=== PATIENT | male | born 1945 | race Caucasian/White ===

== ENCOUNTER 2019-03-09 07:34 | Emergency (ER) | payer MEDICARE ==
[2019-03-09] MEDS ORDERED: Aspirin 81 MG Tab.Chew PO ONE (07:48)
[2019-03-09] MEDS ORDERED: Morphine 4 MG/ML Syringe IVPUSH ONE ×3 (07:48→08:22)
[2019-03-09] MEDS ORDERED: Nitroglycerin/D5W 25 MG/250 ML BOTTLE IV SCH (08:00)
[2019-03-09] MEDS ORDERED: Sodium Chloride 0.9% 10 ML Syringe FLUSH PRN (08:00)
[2019-03-09] MEDS ORDERED: Clopidogrel 75 MG Tab PO ONE (08:01)
[2019-03-09] MEDS ORDERED: Heparin Sodium 5,000 Units/ML Vial IVPUSH ONE (08:01)
[2019-03-09] MEDS ORDERED: LORazepam 2 MG/ML SDV IVPUSH ONE (08:06)
[2019-03-09] MEDS ORDERED: Heparin Sodium/D5W 25,000 UNITS/500 ML BAG IV SCH (08:15)
[2019-03-09] MEDS ORDERED: Morphine 4 MG/ML Syringe ONE (08:25)
--- NOTE | 2019-03-09 08:47 | EDM.PDOC ---
ED HPI GENERAL MEDICAL PROBLEM - General Chief Complaint: Chest Pain Stated Complaint: CHEST PAINS Time Seen by Provider: 03/09/19 07:54 Source of Information: Reports: Patient History Limitations: Reports: No Limitations - History of Present Illness INITIAL COMMENTS - FREE TEXT/NARRATIVE: 73-year-old white male comes in with chest pain. He's had 5 stents in the past that is 3 or 4 different episodes last time was 2011 at [facility]. For the past 2 or 3 days he's been having episodes of chest pain and this morning he got out of the shower and it was quite a bit worse. He took [address] on the way in. It decreased the pain a little bit now down to about 6 out of 10. He feels a little bit short of breath sometimes no nausea no sweats. He's anon smoker no significant family history of heart disease. His says his heart rate is always just a little bit on the low side. Left Chest Pain Score (Numeric/FACES): 8 - Related Data Allergies Allergy/AdvReac Type Severity Reaction Status Date / Time No Known Allergies Allergy Verified 03/09/19 07:49 Past Medical History Cardiovascular History: Reports: Stents - Infectious Disease History Infectious Disease History: Reports: Chicken Pox Social & Family History - Tobacco Use Smoking Status *Q: Unknown Ever Smoked ED ROS GENERAL - Review of Systems Review Of Systems: ROS reveals no pertinent complaints other than HPI. ED EXAM, GENERAL - Physical Exam Exam: See Below Exam Limited By: No Limitations General Appearance: Alert, WD/WN, Mild Distress Eye Exam: Bilateral Eye: Normal Inspection Throat/Mouth: Normal Inspection Neck: Normal Inspection Respiratory/Chest: Lungs Clear Cardiovascular: Normal Peripheral Pulses, Regular Rate, Rhythm, No Murmur GI/Abdominal: Non-Tender Extremities: Normal Inspection, No Pedal Edema Neurological: Alert, Oriented, Normal Cognition Psychiatric: Normal Affect Skin Exam: Warm, Dry Course - Vital Signs Last Recorded V/S: Last Vital Signs Temp 35.9 C 03/09/19 07:37 Pulse 59 L 03/09/19 07:37 Resp 16 03/09/19 07:37 BP 153/79 H 03/09/19 07:37 Pulse Ox 95 03/09/19 07:37 - Orders/Labs/Meds Orders: Active Orders 24 hr Category Date Time Status EKG Documentation Completion [RC] ASDIRECTED Care 03/09/19 08:00 Active Heparin Sodium/D5W [Heparin 25,000 Units in D5W 500 ML] Med 03/09/19 08:15 Active 25,000 units in 500 ml IV TITRATE Nitroglycerin/D5W [Nitroglycerin 25 MG/D5W 250 ML] Med 03/09/19 08:00 Active 25 mg in 250 ml IV TITRATE Sodium Chloride 0.9% [Saline Flush] Med 03/09/19 08:00 Active 10 ml FLUSH ASDIRECTED PRN Saline Lock Insert [OM.PC] Urgent Oth 03/09/19 08:00 Ordered EKG 12 Lead [EK] Urgent Ther 03/09/19 08:00 Ordered Medication Orders Nitroglycerin/Dextrose (Nitroglycerin 25 Mg/D5w 250 Ml) 25 mg in 250 mls @ 6 mls/hr IV TITRATE NICA; Protocol Last Admin: 03/09/19 08:01 Dose: 10 mcg/min, 6 mls/hr Heparin Sodium/Dextrose (Heparin 25,000 Units In D5w 500 Ml) 25,000 units in 500 mls @ 20 mls/hr IV TITRATE NICA; Protocol Last Admin: 03/09/19 08:22 Dose: 1,000 units/hr, 20 mls/hr Sodium Chloride (Saline Flush) 10 ml FLUSH ASDIRECTED PRN PRN Reason: Keep Vein Open Labs: Laboratory Tests 03/09/19 03/09/19 03/09/19 Range/Units 08:11 08:11 08:11 WBC 7.1 (4.5-11.0) K/uL RBC 4.75 (4.30-5.90) M/uL Hgb 15.4 H (12.0-15.0) g/dL Hct 44.3 (40.0-54.0) % MCV 93 (80-98) fL MCH 32 H (27-31) pg MCHC 35 (32-36) % Plt Count 211 (150-400) K/uL Neut % (Auto) 70 H (36-66) % Lymph % (Auto) 20 L (24-44) % [place] % (Auto) 9 H (2-6) % Eos % (Auto) 1 L (2-4) % Baso % (Auto) 0 (0-1) % APTT 24.9 L (27.0-36.0) sec Sodium 144 (140-148) mmol/L Potassium 3.9 (3.6-5.2) mmol/L Chloride 108 (100-108) mmol/L Carbon Dioxide 25 (21-32) mmol/L Anion Gap 10.7 (5.0-14.0) mmol/L BUN 21 H (7-18) mg/dL Creatinine 1.0 (0.8-1.3) mg/dL Est Cr Clr Drug Dosing 68.94 mL/min Estimated GFR (MDRD) > 60 (>60) Glucose 108 H (74-106) mg/dL Calcium 9.1 (8.5-10.1) mg/dL Total Bilirubin 0.7 (0.2-1.0) mg/dL AST 17 (15-37) U/L ALT 34 (12-78) U/L Alkaline Phosphatase 58 (46-116) U/L Troponin I < 0.017 (0.000-0.056) ng/mL Total Protein 6.8 (6.4-8.2) g/dL Albumin 3.9 (3.4-5.0) g/dL Globulin 2.9 (2.3-3.5) g/dL Albumin/Globulin Ratio 1.3 (1.2-2.2) Meds: Medications Generic Name Dose Route Start Last Admin Trade Name Freq PRN Reason Stop Dose Admin Nitroglycerin/Dextrose 25 mg in 250 mls @ 6 mls/hr 03/09/19 08:00 03/09/19 08 :01 Nitroglycerin 25 Mg/D5w 250 Ml IV 10 mcg/min TITRATE NICA 6 mls/hr Administration Protocol 10 MCG/MIN Heparin Sodium/Dextrose 25,000 units in 500 mls @ 20 mls/hr 03/09/19 08:15 08:22 Heparin 25,000 Units In D5w 500 Ml IV 1,000 units/hr TITRATE NICA 20 mls/hr Administration Protocol 1,000 UNITS/HR Sodium Chloride 10 ml 03/09/19 08:00 Saline Flush FLUSH ASDIRECTED PRN Keep Vein Open Discontinued Medications Generic Name Dose Route Start Last Admin Trade Name Freq PRN Reason Stop Dose Admin Aspirin 325 mg 03/09/19 07:48 03/09/19 07:53 Aspirin PO 03/09/19 07:49 325 mg ONETIME ONE Administration Clopidogrel Bisulfate 600 mg 03/09/19 08:01 03/09/19 08:11 Plavix PO 03/09/19 08:02 600 mg ONETIME ONE Administration Heparin Sodium (Porcine) 4,000 units 03/09/19 08:01 03/09/19 08:10 Heparin Sodium IVPUSH 03/09/19 08:02 4,000 units ONETIME ONE Administration Lorazepam 1 mg 03/09/19 08:06 03/09/19 08:13 Ativan IVPUSH 03/09/19 08:07 1 mg ONETIME ONE Administration Morphine Sulfate 4 mg 03/09/19 07:48 03/09/19 08:01 Morphine IVPUSH 03/09/19 07:49 4 mg ONETIME ONE Administration Morphine Sulfate 4 mg 03/09/19 08:06 03/09/19 08:14 Morphine IVPUSH 03/09/19 08:07 4 mg ONETIME ONE Administration Morphine Sulfate 4 mg 03/09/19 08:22 03/09/19 08:26 Morphine IVPUSH 03/09/19 08:23 4 mg ONETIME ONE Administration Morphine Sulfate Confirm 03/09/19 08:25 Morphine Administered 03/09/19 08:26 Dose 4 mg .ROUTE .[facility] - Re-Assessments/Exams Free Text/Narrative Re-Assessment/Exam: 03/09/19 08:40 CP down to 3/10 after 4mg x 3 Morphine. Increasing ntg to 20. Bp 160's. 03/09/19 0845 An EKG showed a normal sinus rhythm partial right bundle branch block. No old EKGs. We started off with aspirin and a little bit difficulty starting an IV once we got it he was given IV morphine and started a nitroglycerin drip. I spoke with Dr. Vidal at [facility] in [place] and he has accepted the patient will go ahead and proceed with heparin bolus and drip and loaded with Plavix 600 mg. At present time the patient's pain is as noted above. He's being loaded up for transfer now Departure - Departure Time of Disposition: 08:47 Disposition: DC/Tfer to [facility] Reason for Transfer *Q: Primary PCI Indicated Condition: Serious Clinical Impression: Acute coronary syndrome Referrals: PCP,None [Primary Care Provider] - - My Orders Last 24 Hours: My Active Orders 03/09/19 08:00 EKG Documentation Completion [RC] ASDIRECTED Nitroglycerin/D5W [Nitroglycerin 25 MG/D5W 250 ML] 25 mg in 250 ml IV TITRATE Sodium Chloride 0.9% [Saline Flush] 10 ml FLUSH ASDIRECTED PRN Saline Lock Insert [OM.PC] Urgent EKG 12 Lead [EK] Urgent 03/09/19 08:15 Heparin Sodium/D5W [Heparin 25,000 Units in D5W 500 ML] 25,000 units in 500 ml IV TITRATE - Assessment/Plan Last 24 Hours: My Active Orders 03/09/19 08:00 EKG Documentation Completion [RC] ASDIRECTED Nitroglycerin/D5W [Nitroglycerin 25 MG/D5W 250 ML] 25 mg in 250 ml IV TITRATE Sodium Chloride 0.9% [Saline Flush] 10 ml FLUSH ASDIRECTED PRN Saline Lock Insert [OM.PC] Urgent EKG 12 Lead [EK] Urgent 03/09/19 08:15 Heparin Sodium/D5W [Heparin 25,000 Units in D5W 500 ML] 25,000 units in 500 ml IV TITRATE
== END 2019-03-09 09:00 ==
LOC: JP.ED 07:34
DX: I24.9 Acute ischemic heart disease, unspecified (principal); Z79.82 Long term (current) use of aspirin; Z79.02 Long term (current) use of antithrombotics/antiplatelets; Z79.899 Other long term (current) drug therapy
CPT/HCPCS: 36415; 80053; 84484; 85025; 85730; 93005; 96365; 96368; 96375; 96376; 99284; A9270; J1644; J2060; J2270; J3490; 93010